=== PATIENT | female | born 1945 | race Hispanic/Latino ===

== ENCOUNTER 2017-01-07 12:31 | Emergency (ER) | payer OTHER, MEDICARE ==
[~2017-01-07] VITALS: Ht 160 cm; Wt 66.2 kg
[~2017-01-07 12:31] MED LIST: AUGMENTIN 875 M1 TAB PO; MEDROL DOSEPAK1 PAC PO; ROBITUSSIN W/CO10 ML PO; TAMIFLU 75MG75 MG PO
[2017-01-07] MEDS ORDERED: BREO ELLIPTA 21 EACH INH (13:55)
[2017-01-07 14:24] LABS: ABSOLUTE BASOPHIL COUNT 0 /CUMM (0.0-0.2); ABSOLUTE EOSINOPHIL COUNT 0.3 /CUMM (0.0-0.7); ABSOLUTE GRANULOCYTE CT 4.6 /CUMM (1.4-6.5); ABSOLUTE LYMPH COUNT 2.3 /CUMM (1.2-3.4); ABSOLUTE MONOCYTE COUNT 0.4 /CUMM (0.10-0.60); BASOPHIL % 0.5 % (0.0-2.0); EOSINOPHIL % 3.9 % (0-5); GRANULOCYTE % 60.1 % (42.2-75.2); HEMATOCRIT 40.4 % (37-47); MEAN CORPUSCULAR HGB 29.5 PG (27.0-31.0); MEAN CORPUSCULAR HGB CONC 32.7 G/DL (33.0-37.0); MEAN CORPUSCULAR VOLUME 90.2 FL (81.0-99.0); PLATELET COUNT 312 /CUMM (130-400); RBC DISTRIBUTION WIDTH 13.4 % (11.5-14.5); RED BLOOD CELL CT 4.48 /CUMM (4.20-5.40); WHITE BLOOD CELL COUNT 7.7 /CUMM (4.8-10.8)
--- NOTE | 2017-01-07 14:35 | ED UPPER/LOWER EXTREMITY COMPL ---
History of Present Illness General Chief Complaint: Hip Injury Stated Complaint: R HIP PAIN Source: patient, family, old records Exam Limitations: no limitations Vital Signs & Intake/Output Vital Signs & Intake/Output Vital Signs Date Time Temp Pulse Resp B/P B/P Pulse O2 O2 Flow FiO2 Mean Ox Delivery Rate 01/07 1501 96.6 59 18 131/61 97 Room Air 01/07 1254 97.6 68 16 114/71 97 Room Air Allergies Coded Allergies: No Known Allergies (11/27/15) Reconcile Medications Fluticasone/Vilanterol (Breo Ellipta 200-25 Mcg INH) 200 MCG-25 MCG/DOSE BLST.W.DEV 1 PUFF INH DAILY ASMTHMA (Reported) Triage Note: PT TO ED WITH DAUGHTER FOR INCREASED TROUBLE WALKING X 2 MONTHS. HAS BEEN TAKING OTC MEDS FOR PAIN WITH MINIMAL RELIEF. PT REPORTS "PAIN WITH WALKING." PT PRIMARILY SAMMARINESE SPEAKING, DAUGHTER ACCOMPANYING PT TO TRANSLATE. NO KNOWN INJURY TO RLE. "PAIN MOSTLY IN R HIP" R PEDAL PULSES WNL. PT AWAKE/ALERT WITH EASY WOB. Triage Nurses Notes Reviewed? yes Onset: 1 month Duration: week(s):, constant, continues in ED Timing: recent history Severity: moderate Pain/Injury Location: Right: Hip, Thigh. Method of Injury: unknown Modifying Factors: Improves With: pain medication, rest. Worsens With: movement. Associated Symptoms: GCS 15 since, stiffness LMP (ages 10-50): post menopausal : No Patient currently breastfeeds: No HPI: 1 month prior to admission patient complains of right medial and lateral thigh pain described as achy and intermittent worse with weightbearing and movement improved with [id number] ibuprofen for short period of time. She denies trauma fever chills nausea vomiting diarrhea abdominal pain chest pain shortness of breath headache dysuria rash bleeding change in motor sensory function change in bowel bladder habit. Past History Travel History Traveled to [place] past 21 day No Medical History Any Pertinent Medical History? see below for history Neurological: NONE EENT: NONE Cardiovascular: NONE Respiratory: asthma Gastrointestinal: GERD Hepatic: NONE Renal: NONE Musculoskeletal: NONE Psychiatric: NONE Endocrine: NONE Blood Disorders: NONE Cancer(s): NONE [facility]/Reproductive: NONE Surgical History Surgical History: non-contributory Psychosocial History What is your primary language Bolivian Tobacco Use: Never used Family History Hx Contributory? No Review of Systems Review of Systems Constitutional: Reports: no symptoms. EENTM: Reports: no symptoms. Respiratory: Reports: no symptoms. Cardiovascular: Reports: no symptoms. Gastrointestinal/Abdominal: Reports: no symptoms. Genitourinary: Reports: no symptoms. Musculoskeletal: Reports: see HPI, joint pain, muscle pain. Skin: Reports: no symptoms. Neurological/Psychological: Reports: no symptoms. Hematologic/Endocrine: Reports: no symptoms. Immunological: Reports: no symptoms. All Other Systems: Reviewed and Negative Physical Exam Physical Exam General Appearance: well developed/nourished, mild distress Head: atraumatic Eyes: Bilateral: PERRL, EOMI. Ears, Nose, Throat: normal pharynx, normal ENT inspection, hearing grossly normal Neck: normal inspection, supple Cardiovascular/Respiratory: regular rate/rhythm Peripheral Pulses: 4+ carotid (R), 4+ carotid (L) Back: normal inspection, normal range of motion, no vertebral tenderness Shoulder Left: normal range of motion, normal inspection Shoulder Right: normal range of motion, normal inspection Elbow Left: normal range of motion, normal inspection Elbow Right: normal range of motion, normal inspection Hand Left: normal inspection, normal range of motion Hand Right: normal inspection, normal range of motion Upper Extremity Reflexes: 2+: bicep (R), bicep (L). Leg Left: normal range of motion, normal inspection Leg Right: normal range of motion, normal inspection, soft tissue tenderness, medial and lateral tenderness R femur Hip Left: normal range of motion, normal inspection Hip Right: normal range of motion, normal inspection Knee Left: normal range of motion, normal inspection Knee Right: normal range of motion, normal inspection Foot Left: normal inspection, normal range of motion Foot Right: normal inspection, normal range of motion Lower Extremity Reflexes: 2+: knee (R), knee (L), ankle (R), ankle (L). Neurologic/Tendon: normal sensation, normal motor functions, normal tendon functions Skin: intact, normal color, warm/dry Lymphatic: no anterior cervical derick Progress Differential Diagnosis: contusion, fracture, sprain Plan of Care: Orders Procedure Date/time Status MAGNESIUM 01/07 135 Complete HIGH SENSITIVITY CRP 01/07 135 Complete COMPREHENSIVE METABOLIC PANEL 01/07 135 Complete CBC WITHOUT DIFFERENTIAL 01/07 1355 Complete Laboratory Tests 01/07/17 1411: Anion Gap 9, Estimated GFR > 60, BUN/Creatinine Ratio 30.0 H, Glucose 101 H, Calcium 8.9, Magnesium 2.2, Total Bilirubin 0.4, AST 21, ALT 31, Alkaline Phosphatase 108, C-React Prot High Sens 1.8, Total Protein 6.8, Albumin 3.8, Globulin 3.0, Albumin/Globulin Ratio 1.3, CBC w Diff NO MAN DIFF REQ, RBC 4.48, MCV 90.2, MCH 29.5, RDW 13.4, MPV 8.0, Gran % 60.1, Lymphocytes % 30.2, Monocytes % 5.3, Eosinophils % 3.9, Basophils % 0.5, Absolute Granulocytes 4.6, Absolute Lymphocytes 2.3, Absolute Monocytes 0.4, Absolute Eosinophils 0.3, Absolute Basophils 0, PUBS MCHC 32.7 L Diagnostic Imaging: Viewed by Me: Radiology Read. Discussed w/RAD: Radiology Read. Radiology Impression: no acute abnormality, no fracture, no dislocation, FINDINGS: Mild left, moderate right axial and superior joint space narrowing. There are bilateral degenerative changes with sclerosis and subchondral cysts of the acetabulum and femoral heads, right greater than left. No fracture or dislocation seen. Sacral ala are intact. Bilateral sacroiliac joints are normal. IMPRESSION: No acute osseous abnormality. Moderate right, mild left axial joint space narrowing. Departure Departure Time of Disposition: 1524 Disposition: HOME OR SELF CARE Condition: Stable Clinical Impression Primary Impression: Osteoarthritis of both hips Qualifiers: Osteoarthritis type: primary Qualified Code: M16.0 - Bilateral primary osteoarthritis of hip Referrals: [facility] Should call within 1 week for appointment scheduling. PATIENT HAS NO PRIMARY CARE DR (PCP/Family) Additional Instructions: Ibuprofen 1-2 tabs every 6 hours for pain Departure Forms: Customer Survey General Discharge Information Prescriptions: Current Visit Scripts Meloxicam (Mobic) 1 TAB PO DAILY #30 TAB
[2017-01-07 15:01] VITALS: BP 131/61
--- NOTE | 2017-01-07 15:02 | RADIOLOGY REPORT ---
EXAMINATION: XR HIP, RIGHT CLINICAL INFORMATION: Atraumatic right hip pain. Arthritis. COMPARISON: None TECHNIQUE: AP view of the pelvis with AP and frog-leg lateral views of the right hip. FINDINGS: Mild left, moderate right axial and superior joint space narrowing. There are bilateral degenerative changes with sclerosis and subchondral cysts of the acetabulum and femoral heads, right greater than left. No fracture or dislocation seen. Sacral ala are intact. Bilateral sacroiliac joints are normal. IMPRESSION: No acute osseous abnormality. Moderate right, mild left axial joint space narrowing.
[2017-01-07] MEDS ORDERED: MOBIC7.5 M1 PO (15:30)
== END 2017-01-07 15:48 ==
LOC: ERH 12:31
PROVIDERS: Emergency Medicine
DX: M16.0 Bilateral primary osteoarthritis of hip (principal)
CPT/HCPCS: 73502-RT